=== PATIENT | male | born 1940 | race Native Hawaiian/Other Pacific Islander ===

== ENCOUNTER 2016-10-07 13:15 | Outpatient (CLI) | payer OTHER | END 2016-10-07 20:14 | disposition home or self-care (01) | LOC: LABW 13:15 | DX: Z86.010 Personal history of colon polyps (principal) | CPT/HCPCS: 82270 ==

== ENCOUNTER 2017-10-07 09:27 | Outpatient (CLI) | payer OTHER | END 2017-10-07 19:20 | disposition home or self-care (01) | LOC: LAB 09:27 | DX: K64.0 First degree hemorrhoids (principal) | CPT/HCPCS: 82272 ==

== ENCOUNTER 2018-10-07 09:23 | Outpatient (CLI) | payer OTHER | END 2018-10-07 22:48 | disposition home or self-care (01) | LOC: LABW 09:23 | DX: K64.0 First degree hemorrhoids (principal) | CPT/HCPCS: 82272 ==

== ENCOUNTER 2019-10-11 14:27 | Outpatient (CLI) | payer OTHER | END 2019-10-11 22:32 | disposition home or self-care (01) | LOC: LABW 14:27 | DX: K64.0 First degree hemorrhoids (principal) | CPT/HCPCS: 82272 ==

== ENCOUNTER 2020-10-18 09:28 | Outpatient (CLI) | payer OTHER | END 2020-10-18 21:49 | disposition home or self-care (01) | LOC: LABW 09:28 | PROVIDERS: ATTEND Internal Medicine Gastroenterology | DX: K64.0 First degree hemorrhoids (principal) | CPT/HCPCS: 82272 ==

== ENCOUNTER 2021-09-25 10:32 | Outpatient (CLI) | payer OTHER | END 2021-09-25 19:09 | disposition home or self-care (01) | LOC: US 10:32 | PROVIDERS: ATTEND Nurse Practitioner Family | DX: M79.604 Pain in right leg (principal); R60.0 Localized edema ==

== ENCOUNTER 2021-10-23 08:32 | Outpatient (CLI) | payer OTHER | END 2021-10-23 19:08 | disposition home or self-care (01) | LOC: LABW 08:32 | PROVIDERS: ATTEND Internal Medicine Gastroenterology | DX: K64.0 First degree hemorrhoids (principal) | CPT/HCPCS: 82272 ==

== ENCOUNTER 2022-10-29 09:29 | Outpatient (CLI) | payer OTHER | END 2022-10-29 22:26 | disposition home or self-care (01) | LOC: LABW 09:29 | PROVIDERS: ATTEND Internal Medicine Gastroenterology | DX: K64.0 First degree hemorrhoids (principal) | CPT/HCPCS: 82272 ==

== ENCOUNTER 2023-10-19 08:14 | Outpatient (CLI) | payer OTHER | END 2023-10-19 19:04 | disposition home or self-care (01) | LOC: NM 08:14 | PROVIDERS: ATTEND Internal Medicine | DX: R10.9 Unspecified abdominal pain (principal); R19.7 Diarrhea, unspecified; R10.11 Right upper quadrant pain | CPT/HCPCS: A9537 ==